=== PATIENT | female | born 1955 ===

== ENCOUNTER → 2020-09-10 08:51 | Outpatient (BNVA) | payer MEDICARE, SELFPAY | PROVIDERS: PCP Internal Medicine; Visit Provider Family Medicine Adult Medicine | DX: I69.954 Hemiplegia and hemiparesis following unspecified cerebrovascular disease affecting left non-dominant side (principal); M54.16 Radiculopathy, lumbar region; Z99.3 Dependence on wheelchair | CPT/HCPCS: 99212 ==

== ENCOUNTER → 2020-11-04 08:33 | Outpatient (BNVA) | payer MEDICARE, SELFPAY | PROVIDERS: PCP Internal Medicine; Visit Provider Nurse Practitioner Family | DX: M54.16 Radiculopathy, lumbar region (principal); G81.94 Hemiplegia, unspecified affecting left nondominant side | CPT/HCPCS: 99212 ==

== ENCOUNTER → 2020-12-31 08:09 | Outpatient (BNVA) | payer MEDICARE, SELFPAY | PROVIDERS: PCP Internal Medicine; Visit Provider Family Medicine Adult Medicine | DX: M54.16 Radiculopathy, lumbar region (principal); G81.94 Hemiplegia, unspecified affecting left nondominant side; Z79.899 Other long term (current) drug therapy | CPT/HCPCS: 99212 ==